=== PATIENT | male | born 1995 | race African-American/Black ===

== ENCOUNTER 2019-01-27 06:24 | Emergency (ER) | payer OTHER ==
[~2019-01-27] VITALS: Ht 182.9 cm; Wt 95.5 kg
[2019-01-27 06:25] VITALS: BP 119/59
[2019-01-27] MEDS ORDERED: NEOSPORIN OINT 0.9 GM PKT (FLOOR STOCK) TOP ONE (07:15)
[2019-01-27] MEDS ORDERED: BACT800T5 PO (07:31)
== END 2019-01-27 07:56 | disposition home or self-care (01) ==
LOC: M ED 06:24
DX: S91.312A Laceration without foreign body, left foot, initial encounter (principal); W26.0XXA Contact with knife, initial encounter; Y92.019 Unspecified place in single-family (private) house as the place of occurrence of the external cause

== ENCOUNTER → 2019-08-23 | Outpatient (REF) | payer OTHER ==
[~2019-08-23] MED LIST: BACT800T5 PO
[2019-08-23 22:14] LABS: CHLAMYDIA DNA AMPLIFICATION POSITIVE (NEGATIVE); GC DNA AMPLIFICATION NEGATIVE (NEGATIVE)
== END ==
LOC: M SFHCLERA 13:40
PROVIDERS: ATTEND Nurse Practitioner Family
DX: Z20.2 Contact with and (suspected) exposure to infections with a predominantly sexual mode of transmission (principal)
CPT/HCPCS: 81002; 86780; 87661; G0463